=== PATIENT | male | born 1995 | race Caucasian/White ===

== ENCOUNTER 2016-12-10 22:03 | Emergency (ER) | payer BC, OTHER ==
--- NOTE | 2016-12-10 22:30 | EDM.PDOC ---
ED HPI GENERAL MEDICAL PROBLEM - General Chief Complaint: Abdominal Pain Stated Complaint: STOMACH PAIN Time Seen by Provider: 12/10/16 22:29 Source of Information: Reports: Patient - History of Present Illness INITIAL COMMENTS - FREE TEXT/NARRATIVE: HISTORY AND PHYSICAL: History of present illness: Patient has right upper quadrant pain for one month with clear fluid association he avoids greasy meals as it increases pain and upsets his stomach, he awoke with 10 out of 10 pain last night at 2 AM pain improved throughout the day has been eating with worsening of symptoms with food some mild nausea no vomiting fever no chills sweats Review of systems: As per history of present illness and below otherwise all systems reviewed and negative. Past medical history: As per history of present illness and as reviewed below otherwise noncontributory. Surgical history: As per history of present illness and as reviewed below otherwise noncontributory. Social history: No reported history of drug or alcohol abuse. Family history: As per history of present illness and as reviewed below otherwise noncontributory. Physical exam: HEENT: Atraumatic, normocephalic, pupils reactive, negative for conjunctival pallor or scleral icterus, mucous membranes moist, throat clear, neck supple, nontender, trachea midline. Lungs: Clear to auscultation, breath sounds equal bilaterally, chest nontender. Heart: S1S2, regular, negative for clicks, rubs, or JVD. Abdomen: Soft, nondistended, nontender on left side there is some mild tenderness with guarding in the right lower quadrant but more focused tenderness in the right upper quadrant. Negative for masses or hepatosplenomegaly. Negative for costovertebral tenderness. Pelvis: Stable nontender. Genitourinary: Deferred. Rectal: Deferred. Extremities: Atraumatic, negative for cords or calf pain. Neurovascular unremarkable. Neuro: Awake, alert, oriented. Cranial nerves II through XII unremarkable. Cerebellum unremarkable. Motor and sensory unremarkable throughout. Exam nonfocal. Diagnostics: []lab as below CT abdomen pelvis with contrast Therapeutics: []Normal saline 1 L bolus Toradol 30 mg IV Zofran 8 mg IV Toradol 10 mg by mouth 3 times a day #15 no refill Zofran 8 mg ODT every 8 when necessary #30 no refill [place] diet Establish primary care for consideration of HIDA scan and further evaluation Return if symptoms persist or worsen in the interim Impression: []Abdominal pain Likely biliary colic Definitive disposition and diagnosis as appropriate pending reevaluation and review of above. 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 - Past Surgical History HEENT Surgical History: Reports: Tonsillectomy Social & Family History - Family History Hematologic: Reports: Anesthesia Reaction, Other (See Below) Other Hematologic Family History: malignant hyperthermia - Caffeine Use Caffeine Use: Reports: Coffee Caffeine Use Comment: 1-2 daily - Recreational Drug Use Recreational Drug Use: No ED ROS GENERAL - Review of Systems Review Of Systems: See Below ED EXAM, GENERAL - Physical Exam Exam: See Below Course - Vital Signs Last Recorded V/S: Last Vital Signs Temp 36.2 C 12/10/16 22:05 Pulse 104 H 12/10/16 22:05 Resp 20 12/10/16 22:05 BP 148/97 H 12/10/16 22:05 Pulse Ox 20 L 12/10/16 22:05 - Orders/Labs/Meds Orders: Active Orders 24 hr Category Date Time Status Abdomen Pelvis w Cont [CT] Stat Exams 12/10/16 22:30 Taken Labs: Laboratory Tests 12/10/16 12/10/16 12/10/16 Range/Units 22:15 22:15 22:15 WBC 9.23 (4.0-11.0) K/uL RBC 5.04 (4.50-5.90) M/uL Hgb 15.9 (13.0-17.0) g/dL Hct 44.7 (38.0-50.0) % MCV 88.7 (80.0-98.0) fL MCH 31.5 (27.0-32.0) pg MCHC 35.6 (31.0-37.0) g/dL RDW Std Deviation 39.8 (28.0-62.0) fl RDW Coeff of Izaiah 13 (11.0-15.0) % Plt Count 297 (150-400) K/uL MPV 9.80 (7.40-12.00) fL Neut % (Auto) 56.6 (48.0-80.0) % Lymph % (Auto) 33.7 (16.0-40.0) % Wetzel % (Auto) 8.0 (0.0-15.0) % Eos % (Auto) 1.5 (0.0-7.0) % Baso % (Auto) 0.2 (0.0-1.5) % Neut # (Auto) 5.2 (1.4-5.7) K/uL Lymph # (Auto) 3.1 H (0.6-2.4) K/uL Wetzel # (Auto) 0.7 (0.0-0.8) K/uL Eos # (Auto) 0.1 (0.0-0.7) K/uL Baso # (Auto) 0.0 (0.0-0.1) K/uL Nucleated RBC % 0.0 /100WBC Nucleated RBCs # 0 K/uL Sodium 140 (136-146) mmol/L Potassium 4.0 (3.5-5.1) mmol/L Chloride 107 (98-110) mmol/L Carbon Dioxide 22 (21-31) mmol/L BUN 12 (6.0-23.0) mg/dL Creatinine 1.3 (0.6-1.5) mg/dL Est Cr Clr Drug Dosing 92.81 mL/min Estimated GFR (MDRD) > 60.0 ml/min Glucose 102 (60-110) mg/dL Calcium 9.9 (8.8-10.8) mg/dL Total Bilirubin 0.4 (0.1-1.5) mg/dL AST 73 H (5-40) IU/L ALT 31 (8-54) IU/L Alkaline Phosphatase 65 (40-150) Troponin I < 0.10 (0.0-0.29) NG/ML Total Protein 7.8 (6.0-8.0) g/dL Albumin 4.6 (3.5-5.0) g/dL Globulin 3.2 (2.0-3.5) g/dL Albumin/Globulin Ratio 1.4 (1.3-2.8) Amylase 81 (10-90) U/L Lipase 30 (7-80) U/L Urine Color Urine Appearance Urine pH (5.0-8.0) Ur Specific Powell (1.001-1.035) Urine Protein (NEGATIVE) mg/dL Urine Glucose (UA) (NEGATIVE) mg/dL Urine Ketones (NEGATIVE) mg/dL Urine Occult Blood (NEGATIVE) Urine Nitrite (NEGATIVE) Urine Bilirubin (NEGATIVE) Urine Urobilinogen (<2.0) EU/dL Ur Leukocyte Esterase (NEGATIVE) Urine RBC (0-2/HPF) Urine WBC (0-5/HPF) Ur Epithelial Cells (NONE-FEW) Urine Bacteria (NEGATIVE) 12/10/16 Range/Units 22:25 WBC (4.0-11.0) K/uL RBC (4.50-5.90) M/uL Hgb (13.0-17.0) g/dL Hct (38.0-50.0) % MCV (80.0-98.0) fL MCH (27.0-32.0) pg MCHC (31.0-37.0) g/dL RDW Std Deviation (28.0-62.0) fl RDW Coeff of Izaiah (11.0-15.0) % Plt Count (150-400) K/uL MPV (7.40-12.00) fL Neut % (Auto) (48.0-80.0) % Lymph % (Auto) (16.0-40.0) % Wetzel % (Auto) (0.0-15.0) % Eos % (Auto) (0.0-7.0) % Baso % (Auto) (0.0-1.5) % Neut # (Auto) (1.4-5.7) K/uL Lymph # (Auto) (0.6-2.4) K/uL Wetzel # (Auto) (0.0-0.8) K/uL Eos # (Auto) (0.0-0.7) K/uL Baso # (Auto) (0.0-0.1) K/uL Nucleated RBC % /100WBC Nucleated RBCs # K/uL Sodium (136-146) mmol/L Potassium (3.5-5.1) mmol/L Chloride (98-110) mmol/L Carbon Dioxide (21-31) mmol/L BUN (6.0-23.0) mg/dL Creatinine (0.6-1.5) mg/dL Est Cr Clr Drug Dosing mL/min Estimated GFR (MDRD) ml/min Glucose (60-110) mg/dL Calcium (8.8-10.8) mg/dL Total Bilirubin (0.1-1.5) mg/dL AST (5-40) IU/L ALT (8-54) IU/L Alkaline Phosphatase (40-150) Troponin I (0.0-0.29) NG/ML Total Protein (6.0-8.0) g/dL Albumin (3.5-5.0) g/dL Globulin (2.0-3.5) g/dL Albumin/Globulin Ratio (1.3-2.8) Amylase (10-90) U/L Lipase (7-80) U/L Urine Color YELLOW Urine Appearance CLEAR Urine pH 6.5 (5.0-8.0) Ur Specific Powell 1.015 (1.001-1.035) Urine Protein NEGATIVE (NEGATIVE) mg/dL Urine Glucose (UA) NEGATIVE (NEGATIVE) mg/dL Urine Ketones NEGATIVE (NEGATIVE) mg/dL Urine Occult Blood NEGATIVE (NEGATIVE) Urine Nitrite NEGATIVE (NEGATIVE) Urine Bilirubin NEGATIVE (NEGATIVE) Urine Urobilinogen 0.2 (<2.0) EU/dL Ur Leukocyte Esterase NEGATIVE (NEGATIVE) Urine RBC NONE SEEN (0-2/HPF) Urine WBC 0-1 (0-5/HPF) Ur Epithelial Cells NOT SEEN (NONE-FEW) Urine Bacteria RARE (NEGATIVE) Meds: Medications Discontinued Medications Generic Name Dose Route Start Last Admin Trade Name Juniorq PRN Reason Stop Dose Admin Iopamidol 100 ml 12/10/16 23:50 12/10/16 23:51 Isovue Multipack-370 (76%) IVPUSH 12/10/16 23:51 100 ml ONETIME STA Administration Departure - Departure Time of Disposition: 00:27 Disposition: Home, Self-Care 01 Condition: Good Clinical Impression: Abdominal pain - Discharge Information Referrals: Jhonatan Winchester MD [Primary Care Provider] - Forms: ED Department Discharge Additional Instructions: [place] diet as discussed Medication as prescribed Return if symptoms persist worsen or new concerning symptoms develop Establish primary care for further evaluation and consider addition of HIDA scan testing [facility] [address] [place], [place] [id number] The following information is given to patients seen in the emergency department who are being discharged to home. This information is to outline your options for follow-up care. We provide all patients seen in our emergency department with a follow-up referral. The need for follow-up, as well as the timing and circumstances, are variable depending upon the specifics of your emergency department visit. If you don't have a primary care physician on staff, we will provide you with a referral. We always advise you to contact your personal physician following an emergency department visit to inform them of the circumstance of the visit and for follow-up with them and/or the need for any referrals to a consulting specialist. The emergency department will also refer you to a specialist when appropriate. This referral assures that you have the opportunity for follow-up care with a specialist. All of these measure are taken in an effort to provide you with optimal care, which includes your follow-up. Under all circumstances we always encourage you to contact your private physician who remains a resource for coordinating your care. When calling for follow-up care, please make the office aware that this follow-up is from your recent emergency room visit. If for any reason you are refused follow-up, please contact the [facility] emergency department at and asked to speak to the emergency department charge nurse. - My Orders Last 24 Hours: My Active Orders 12/10/16 22:30 Abdomen Pelvis w Cont [CT] Stat - Assessment/Plan Last 24 Hours: My Active Orders 12/10/16 22:30 Abdomen Pelvis w Cont [CT] Stat
[2016-12-10 22:47] LABS: CHLORIDE,CL 107 mmol/L (98-110); SODIUM,NA 140 mmol/L (136-146)
[2016-12-10] MEDS ORDERED: Iopamidol 755 MG/ML 500 ML Multipack Bottle IVPUSH STA (23:50)
[2016-12-11 00:48] VITALS: BP 139/84
--- NOTE | 2016-12-13 10:05 | CT ---
EXAM DATE: 12/10/16 PATIENT'S AGE: 21 Patient: BALWINDER NAZARIO Facility: [place], [place] Site . Site : 1995 Study: CT Abdomen/Pelvis [id number] 11:50:09 PM Ordering Physician: Clayton Rushing Final Report: INDICATION: Right lower quadrant abdominal pain and nausea for 1 month TECHNIQUE: CT abdomen and pelvis acquired with 100 cc Isovue 370 IV contrast. COMPARISON: October 04, 2014 FINDINGS: Lower chest: Unremarkable. Liver: Unremarkable. Spleen: Unremarkable. Pancreas: Unremarkable. Gallbladder and bile ducts: Unremarkable. Adrenal glands: Unremarkable. Kidneys: Unremarkable. GI tract: Unremarkable. Appendix and terminal ileum are normal. Vascular structures: Unremarkable. Lymph nodes: Unremarkable. Miscellaneous: Unremarkable. No free air or significant free fluid. Pelvic Organs: Unremarkable. Bones: Unremarkable for age. IMPRESSION: Unremarkable CT of the abdomen and pelvis. Specifically, the appendix and terminal ileum are normal in appearance. Please note that all CT scans at this facility use dose modulation, iterative reconstruction, and/or weight-based dosing when appropriate to reduce radiation dose to as low as reasonably achievable. Dictated by Darcie Baez MD @ Dec 11 2016 12:00AM (Electronic Signature) Report Signed by Proxy. [facility] CENTER[facility]arek
== END 2016-12-11 00:43 | disposition home or self-care (01) ==
LOC: MW.ED 22:03
DX: R10.11 Right upper quadrant pain (principal)
CPT/HCPCS: 74177; 80053; 81001; 82150; 83690; 84484; 85025; 99284; Q9967; 99282

== ENCOUNTER 2017-03-08 19:19 | Emergency (ER) | payer OTHER ==
[2017-03-08 19:30] VITALS: BP 132/91
--- NOTE | 2017-03-08 19:32 | EDM.PDOC ---
ED HPI GENERAL MEDICAL PROBLEM - General Chief Complaint: ENT Problem Stated Complaint: TOOTH PAIN Time Seen by Provider: 03/08/17 19:32 Source of Information: Reports: Patient - History of Present Illness INITIAL COMMENTS - FREE TEXT/NARRATIVE: HISTORY AND PHYSICAL: History of present illness: [Patient with a history of dental pain secondary to his wisdom teeth currently complains of 5 out of 10 pain and headaches secondary to wisdom teeth, he has seen Dr. Zee was referred him to an resident athletic trainer as he has a history of malignant hyperthermia during procedures. The local resident athletic trainer had declined taking care of him and is referring him on at current he complains of headache and dental pain no fever nausea vomiting chills sweats no chest pain shortness breath dizziness palpitation about a urine symptoms Patient has failed [id number] symptomatic therapies ] Patient works in dispatch in the [employer] Review of systems: As per history of present illness and below otherwise all systems reviewed and negative. Past medical history: As per history of present illness and as reviewed below otherwise noncontributory. Surgical history: As per history of present illness and as reviewed below otherwise noncontributory. Social history: No reported history of drug or alcohol abuse. Family history: As per history of present illness and as reviewed below otherwise noncontributory. Physical exam: HEENT: Atraumatic, normocephalic, pupils reactive, negative for conjunctival pallor or scleral icterus, mucous membranes moist, throat clear, neck supple, nontender, trachea midline. Dentition appears healthy no swelling or abscess formation he does have a wisdom tooth trying to cut down the left rear lower jaw Lungs: Clear to auscultation, breath sounds equal bilaterally, chest nontender. Heart: S1S2, regular, negative for clicks, rubs, or JVD. Abdomen: Soft, nondistended, nontender. Negative for masses or hepatosplenomegaly. Negative for costovertebral tenderness. Pelvis: Stable nontender. Genitourinary: Deferred. Rectal: Deferred. Extremities: Atraumatic, negative for cords or calf pain. Neurovascular unremarkable. Neuro: Awake, alert, oriented. Cranial nerves II through XII unremarkable. Cerebellum unremarkable. Motor and sensory unremarkable throughout. Exam nonfocal. Diagnostics: [Clinical] Therapeutics: []Tramadol Follow-up with Dr. BAKER at [facility] consider referral to [facility] to if necessary Impression: [Dental pain] Definitive disposition and diagnosis as appropriate pending reevaluation and review of above. 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 ED EXAM, GENERAL - Physical Exam Exam: See Below Course - Vital Signs Last Recorded V/S: Last Vital Signs Temp 98.2 F 03/08/17 19:27 Pulse 90 03/08/17 19:27 Resp 18 03/08/17 19:27 BP 132/91 H 03/08/17 19:27 Pulse Ox 98 03/08/17 19:27 Departure - Departure Time of Disposition: 19:39 Disposition: Home, Self-Care 01 Condition: Good Clinical Impression: Pain, dental - Discharge Information Referrals: Jhonatan Winchester MD [Primary Care Provider] - Forms: ED Department Discharge Additional Instructions: Medication as prescribed Return if symptoms persist or worsen Follow-up with dentist as soon as possible Recommend [facility] is the [facility] provider available at [facility] may consider referral onto [facility] for treatment The following information is given to patients seen in the emergency department who are being discharged to home. This information is to outline your options for follow-up care. We provide all patients seen in our emergency department with a follow-up referral. The need for follow-up, as well as the timing and circumstances, are variable depending upon the specifics of your emergency department visit. If you don't have a primary care physician on staff, we will provide you with a referral. We always advise you to contact your personal physician following an emergency department visit to inform them of the circumstance of the visit and for follow-up with them and/or the need for any referrals to a consulting specialist. The emergency department will also refer you to a specialist when appropriate. This referral assures that you have the opportunity for follow-up care with a specialist. All of these measure are taken in an effort to provide you with optimal care, which includes your follow-up. Under all circumstances we always encourage you to contact your private physician who remains a resource for coordinating your care. When calling for follow-up care, please make the office aware that this follow-up is from your recent emergency room visit. If for any reason you are refused follow-up, please contact the [facility] emergency department at and asked to speak to the emergency department charge nurse.
== END 2017-03-08 19:55 | disposition home or self-care (01) ==
LOC: MW.ED 19:19
DX: K08.89 Other specified disorders of teeth and supporting structures (principal); Z79.899 Other long term (current) drug therapy
CPT/HCPCS: 99282

== ENCOUNTER 2019-01-31 11:27 | Emergency (ER) | payer OTHER ==
--- NOTE | 2019-01-31 11:38 | EDM.PDOC ---
ED HPI GENERAL MEDICAL PROBLEM - General Stated Complaint: SORE THROAT Time Seen by Provider: 01/31/19 11:32 - History of Present Illness INITIAL COMMENTS - FREE TEXT/NARRATIVE: HISTORY AND PHYSICAL: History of present illness: Patient's 23-year-old white male presents concern of sore throat worse over last 48 hours he's had tactile fever denies chills denies nausea vomiting shortness breath or other concern Review of systems: As per history of present illness and below otherwise all systems reviewed and negative. Past medical history: As per history of present illness and as reviewed below otherwise noncontributory. Surgical history: As per history of present illness and as reviewed below otherwise noncontributory. Social history: No reported history of drug or alcohol abuse. Family history: As per history of present illness and as reviewed below otherwise noncontributory. Physical exam: HEENT: Atraumatic, normocephalic, pupils reactive, negative for conjunctival pallor or scleral icterus, mucous membranes moist, throat injected, neck supple , nontender, trachea midline. Lungs: Clear to auscultation, breath sounds equal bilaterally, chest nontender. Heart: S1S2, regular, negative for clicks, rubs, or JVD. Abdomen: Soft, nondistended, nontender. Negative for masses or hepatosplenomegaly. Negative for costovertebral tenderness. Pelvis: Stable nontender. Genitourinary: Deferred. Rectal: Deferred. Extremities: Atraumatic, negative for cords or calf pain. Neurovascular unremarkable. Neuro: Awake, alert, oriented. Cranial nerves II through XII unremarkable. Cerebellum unremarkable. Motor and sensory unremarkable throughout. Exam nonfocal. Diagnostics: Deferred Therapeutics: None Impression: 1 pharyngitis Definitive disposition and diagnosis as appropriate pending reevaluation and review of above. - Related Data Allergies Allergy/AdvReac Type Severity Reaction Status Date / Time No Known Allergies Allergy Verified 03/08/17 19:27 Home Meds: Home Meds Amphetamine/Dextroamphetamine [Adderall XR] 30 mg PO DAILY 12/10/16 [History] Past Medical History HEENT History: Reports: None Cardiovascular History: Reports: None Respiratory History: Reports: None Gastrointestinal History: Reports: None Genitourinary History: Reports: None Musculoskeletal History: Reports: None Neurological History: Reports: None Psychiatric History: Reports: ADHD Endocrine/Metabolic History: Reports: None Hematologic History: Reports: Anesthesia Reaction, Other (See Below) 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 Immunologic History: Reports: None Oncologic (Cancer) History: Reports: None Dermatologic History: Reports: None - Infectious Disease History Infectious Disease History: Reports: None - Past Surgical History HEENT Surgical History: Reports: Tonsillectomy Social & Family History - Family History Family Medical History: Noncontributory Hematologic: Reports: Anesthesia Reaction, Other (See Below) Other Hematologic Family History: malignant hyperthermia - Caffeine Use Caffeine Use: Reports: Coffee Caffeine Use Comment: 1-2 daily ED ROS GENERAL - Review of Systems Review Of Systems: Comprehensive ROS is negative, except as noted in HPI. ED EXAM, GENERAL - Physical Exam Exam: See Below (dictation) Departure - Departure Time of Disposition: 11:37 Disposition: Home, Self-Care 01 Condition: Good Clinical Impression: Pharyngitis - Discharge Information Referrals: PCP,Unknown [Primary Care Provider] - Additional Instructions: The following information is given to patients seen in the emergency department who are being discharged to home. This information is to outline your options for follow-up care. We provide all patients seen in our emergency department with a follow-up referral. The need for follow-up, as well as the timing and circumstances, are variable depending upon the specifics of your emergency department visit. If you don't have a primary care physician on staff, we will provide you with a referral. We always advise you to contact your personal physician following an emergency department visit to inform them of the circumstance of the visit and for follow-up with them and/or the need for any referrals to a consulting specialist. The emergency department will also refer you to a specialist when appropriate. This referral assures that you have the opportunity for followup care with a specialist. All of these measure are taken in an effort to provide you with optimal care, which includes your followup. Under all circumstances we always encourage you to contact your private physician who remains a resource for coordinating your care. When calling for followup care, please make the office aware that this follow-up is from your recent emergency room visit. If for any reason you are refused follow-up, please contact the [facility] emergency department at and asked to speak to the emergency department charge nurse. Augmentin is prescribed Motrin/Tylenol as directed push fluids follow primary medical doctor 1 today's return as needed as discussed
[2019-01-31 12:04] VITALS: BP 136/76; PULSE 103
== END 2019-01-31 12:04 | disposition home or self-care (01) ==
LOC: MW.ED 11:27
DX: J02.9 Acute pharyngitis, unspecified (principal); F90.9 Attention-deficit hyperactivity disorder, unspecified type; Z79.899 Other long term (current) drug therapy
CPT/HCPCS: 99283

== ENCOUNTER 2019-04-27 23:05 | Emergency (ER) | payer OTHER ==
[2019-04-27] MEDS ORDERED: Albuterol/Ipratropium 3.0-0.5 MG/3 ML Neb Soln NEB ONE (23:20)
[2019-04-27] MEDS ORDERED: Dexamethasone 10 MG/ML SDV IM ONE (23:25)
[2019-04-27 23:31] VITALS: BP 134/83; PULSE 109
--- NOTE | 2019-04-27 23:53 | EDM.PDOC ---
ED HPI GENERAL MEDICAL PROBLEM - General Chief Complaint: Respiratory Problem Stated Complaint: TROUBLE BREATHING Time Seen by Provider: 04/27/19 23:40 Source of Information: Reports: Patient - History of Present Illness INITIAL COMMENTS - FREE TEXT/NARRATIVE: The patient is a 23-year-old male with no reported medical problems who presents to the ER for coughing and shortness of breath. He states that he was having some trouble breathing and has been coughing for the last few days. No fevers but he generally does not feel well. No hemoptysis, no syncope or near syncope. Patient overall is a rather poor historian. 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 Treatments Lower Chest Pain Score (Numeric/FACES): 10 - Related Data Allergies Allergy/AdvReac Type Severity Reaction Status Date / Time No Known Allergies Allergy Verified 04/27/19 23:10 Home Meds: Home Meds Amphetamine/Dextroamphetamine [Adderall XR] 20 mg PO DAILY 12/10/16 [History] Past Medical History HEENT History: Reports: None Cardiovascular History: Reports: None Respiratory History: Reports: None Gastrointestinal History: Reports: None Genitourinary History: Reports: None Musculoskeletal History: Reports: None Neurological History: Reports: None Psychiatric History: Reports: ADHD Endocrine/Metabolic History: Reports: None Hematologic History: Reports: Anesthesia Reaction, Other (See Below) 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 Immunologic History: Reports: None Oncologic (Cancer) History: Reports: None Dermatologic History: Reports: None - Infectious Disease History Infectious Disease History: Reports: None - Past Surgical History HEENT Surgical History: Reports: Tonsillectomy Social & Family History - Family History Family Medical History: Noncontributory Hematologic: Reports: Anesthesia Reaction, Other (See Below) Other Hematologic Family History: malignant hyperthermia - Tobacco Use Smoking Status *Q: Current Every Day Smoker Years of Tobacco use: 8 Packs/Tins Daily: 0.5 - Caffeine Use Caffeine Use: Reports: None Caffeine Use Comment: 1-2 daily - Recreational Drug Use Recreational Drug Use: No ED ROS GENERAL - Review of Systems Review Of Systems: See Below (For cough, positive for nasal congestion, positive for shortness of breath, positive for malaise, all other Positives and pertinent negatives as per HPI. All other pertinent systems were reviewed and are negative) ED EXAM, GENERAL - Physical Exam Exam: See Below Free Text/Narrative:: Constitutional: Nontoxic, harsh bronchial cough and mild shortness of breath, mild laryngitis present HEENT.: Normocephalic, Atraumatic, PERRL, EOMI, External ears are atraumatic, nares are patent without epistaxis Neck: Normal range of motion, Trachea Midline, No stridor Respiratory.: Mild respiratory distress, Mild tachypnea, mild wheezing throughout with a harsh bronchial cough Cardiovascular.: Regular rate and Rhythm without murmurs, rubs, or gallops, good peripheral perfusion GI: Deferred Genital Urinary: Deferred Musculoskeletal: Good range of motion. All 4 extremities present and atraumatic , no edema Back: Full Range of Motion Skin: Warm, Dry, Color is ethnicity appropriate, No acute rash. Lymphatic: No lymphadenopathy noted Neurological: Alert, Awake and oriented x 3, No focal deficits noted appreciate , GCS 15 Psych: Affect, Judgement, mood normal Course - Vital Signs Text/Narrative:: The patient was given 1 nebulizer breathing treatment and his symptoms have improved significantly. He was given a dose of Decadron 20 mg IM. Symptomology consistent with a viral syndrome. The patient has work off tomorrow. Stable for discharge. Last Recorded V/S: Last Vital Signs Temp 36.6 C 04/27/19 23:07 Pulse 109 H 04/27/19 23:07 Resp 28 H 04/27/19 23:07 BP 134/83 04/27/19 23:07 Pulse Ox 95 04/27/19 23:07 - Orders/Labs/Meds Orders: Active Orders 24 hr Category Date Time Status CXR [Chest 2V] [CR] Stat Exams 04/27/19 23:24 Ordered Meds: Medications Discontinued Medications Generic Name Dose Route Start Last Admin Trade Name Freq PRN Reason Stop Dose Admin Dexamethasone 20 mg 04/27/19 23:25 Dexamethasone IM 04/27/19 23:26 ONETIME ONE Departure - Departure Time of Disposition: 00:03 Disposition: Home, Self-Care 01 Condition: Good Clinical Impression: Viral syndrome, Bronchospasm - Discharge Information Instructions: Viral Respiratory Infection Referrals: PCP,None [Primary Care Provider] - Sepsis Event Note - Evaluation Sepsis Screening Result: No Definite Risk - Focused Exam Vital Signs: Vital Signs Temp Pulse Resp BP Pulse Ox 04/27/19 23:07 36.6 C 109 H 28 H 134/83 95 Date Exam was Performed: 04/27/19 Time Exam was Performed: 23:40 - My Orders Last 24 Hours: My Active Orders 04/27/19 23:24 CXR [Chest 2V] [CR] Stat - Assessment/Plan Last 24 Hours: My Active Orders 04/27/19 23:24 CXR [Chest 2V] [CR] Stat
--- NOTE | 2019-04-28 00:05 | CR ---
INDICATION: Cough and shortness of breath TECHNIQUE: Chest 2 views COMPARISON: Chest x-ray 06/30/2017 FINDINGS: Cardiovascular and mediastinum: Heart size and vasculature are normal in caliber and appearance. Lungs and pleural spaces: No pleural effusion or pneumothorax. Mild bilateral bronchial wall thickening. Bones and soft tissues: No significant findings. IMPRESSION: Mild bilateral bronchial wall thickening which can be seen in bronchitis or reactive airways disease. Dictated by Moose Malin MD @ Apr 28 2019 12:02AM Signed by Dr. Moose Malin @ Apr 28 2019 12:03AM
== END 2019-04-28 00:21 | disposition home or self-care (01) ==
LOC: MW.ED 23:05
DX: J98.01 Acute bronchospasm (principal); B34.9 Viral infection, unspecified; F17.210 Nicotine dependence, cigarettes, uncomplicated; Z79.899 Other long term (current) drug therapy
CPT/HCPCS: 71046; 94640; 96372; 99285; J1100; J7620-GY

== ENCOUNTER 2020-04-09 21:47 | Emergency (ER) | payer OTHER ==
[2020-04-09] MEDS ORDERED: Cyclobenzaprine 10 MG Tab PO ONE (22:19)
[2020-04-09] MEDS ORDERED: Ketorolac 30 MG/ML SDV IM ONE (22:19)
--- NOTE | 2020-04-09 22:23 | EDM.PDOC ---
ED HPI GENERAL MEDICAL PROBLEM - General Chief Complaint: Genitourinary Problem Stated Complaint: BACK PAIN Time Seen by Provider: 04/09/20 22:20 Source of Information: Reports: Patient History Limitations: Reports: No Limitations - History of Present Illness INITIAL COMMENTS - FREE TEXT/NARRATIVE: Patient is a 24-year-old male who presents today for lower back pain on the righ t side for the past 2 days. Patient states that he contracted Tylenol Motrin at home without relief. Patient denies any injuries or direct trauma to the back. Patient dates the pain does wrap around to his right lower groin. Patient also reports been urinating more frequently than normal. Patient denies any blood in his urine discharge or pain with urination. Patient denies any fever chills. R flank Pain Score (Numeric/FACES): 10 - Related Data Allergies Allergy/AdvReac Type Severity Reaction Status Date / Time No Known Allergies Allergy Verified 04/27/19 23:10 Home Meds: Home Meds Amphetamine/Dextroamphetamine [Adderall XR] 25 mg PO DAILY 12/10/16 [History] Naproxen Sodium [Naproxen Sodium ER] 500 mg PO BID PRN 10 Days #20 tablet.er 04/10/20 [Rx] Past Medical History HEENT History: Reports: None Cardiovascular History: Reports: None Respiratory History: Reports: None Gastrointestinal History: Reports: None Genitourinary History: Reports: None Musculoskeletal History: Reports: None Neurological History: Reports: None Psychiatric History: Reports: ADHD Endocrine/Metabolic History: Reports: None Hematologic History: Reports: Anesthesia Reaction, Other (See Below) 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 Immunologic History: Reports: None Oncologic (Cancer) History: Reports: None Dermatologic History: Reports: None - Infectious Disease History Infectious Disease History: Reports: None - Past Surgical History HEENT Surgical History: Reports: Tonsillectomy Social & Family History - Family History Family Medical History: No Pertinent Family History Hematologic: Reports: Anesthesia Reaction, Other (See Below) Other Hematologic Family History: malignant hyperthermia - Caffeine Use Caffeine Use: Reports: None Caffeine Use Comment: 1-2 daily ED ROS GENERAL - Review of Systems Review Of Systems: Comprehensive ROS is negative, except as noted in HPI. ED EXAM, GENERAL - Physical Exam Exam: See Below General Appearance: Alert, WD/WN Respiratory/Chest: No Respiratory Distress, Lungs Clear Cardiovascular: Normal Peripheral Pulses, Regular Rate, Rhythm GI/Abdominal: Normal Bowel Sounds, Soft, Non-Tender Back Exam: Normal Inspection, Full Range of Motion, Paraspinal Tenderness. No: Muscle Spasm, Vertebral Tenderness Neurological: Alert, Oriented, Normal Gait Course - Vital Signs Last Recorded V/S: Last Vital Signs Temp 97.0 F 04/09/20 22:05 Pulse 84 04/09/20 22:05 Resp 18 04/09/20 22:05 BP 119/74 04/09/20 22:05 Pulse Ox 95 04/09/20 22:05 - Orders/Labs/Meds Labs: Laboratory Tests 04/09/20 Range/Units 21:56 Urine Color YELLOW Urine Appearance CLEAR Urine pH 6.0 (5.0-8.0) Ur Specific Cook >= 1.030 (1.001-1.035) Urine Protein NEGATIVE (NEGATIVE) mg/dL Urine Glucose (UA) NEGATIVE (NEGATIVE) mg/dL Urine Ketones TRACE H (NEGATIVE) mg/dL Urine Occult Blood NEGATIVE (NEGATIVE) Urine Nitrite NEGATIVE (NEGATIVE) Urine Bilirubin NEGATIVE (NEGATIVE) Urine Urobilinogen 0.2 (<2.0) EU/dL Ur Leukocyte Esterase NEGATIVE (NEGATIVE) Meds: Medications Discontinued Medications Generic Name Dose Route Start Last Admin Trade Name Freq PRN Reason Stop Dose Admin Cyclobenzaprine HCl 10 mg 04/09/20 22:19 04/09/20 22:36 Flexeril PO 04/09/20 22:20 10 mg ONETIME ONE Administration Ketorolac Tromethamine 30 mg 04/09/20 22:19 04/09/20 22:37 Toradol IM 04/09/20 22:20 30 mg ONETIME ONE Administration - Re-Assessments/Exams Free Text/Narrative Re-Assessment/Exam: 04/10/20 00:33 Patient x-ray reviewed patient was given Toradol and Flexeril for pain. Patient will be discharged home to follow-up with primary care physician. Departure - Departure Time of Disposition: 00:33 Disposition: Home, Self-Care 01 Condition: Good Clinical Impression: Back pain - Discharge Information *PRESCRIPTION DRUG MONITORING PROGRAM REVIEWED*: Not Applicable *COPY OF PRESCRIPTION DRUG MONITORING REPORT IN PATIENT SAMAN: Not Applicable Instructions: Acute Back Pain, Adult Referrals: Jhonatan Winchester MD [Primary Care Provider] - Forms: ED Department Discharge Additional Instructions: The following information is given to patients seen in the emergency department who are being discharged to home. This information is to outline your options for follow-up care. We provide all patients seen in our emergency department with a follow-up referral. The need for follow-up, as well as the timing and circumstances, are variable depending upon the specifics of your emergency department visit. If you don't have a primary care physician on staff, we will provide you with a referral. We always advise you to contact your personal physician following an emergency department visit to inform them of the circumstance of the visit and for follow-up with them and/or the need for any referrals to a consulting specialist. The emergency department will also refer you to a specialist when appropriate. This referral assures that you have the opportunity for follow-up care with a specialist. All of these measure are taken in an effort to provide you with optimal care, which includes your follow-up. Under all circumstances we always encourage you to contact your private physician who remains a resource for coordinating your care. When calling for follow-up care, please make the office aware that this follow-up is from your recent emergency room visit. If for any reason you are refused follow-up, please contact the [facility] Emergency Department at and asked to speak to the emergency department charge nurse. Please follow up with your primary care physician. If you do not have a primary care physician, see below: [facility] [address] [place] [id number] [facility] [address] [place] [id number] [facility] Services at [facility] (Physical Therapy, Occupational Therapy, Speech Therapy) Professional Building [address] [place] [address], [address] [place] [address] . Please follow-up to primary care physician. Above we also placed for physical therapy that you can follow-up with if you turn having pain. Of any leg weakness numbness your tailbone lose control your bladder please return to the ED. Sepsis Event Note (ED) - Focused Exam Vital Signs: Vital Signs Temp Pulse Resp BP Pulse Ox 04/09/20 22:05 97.0 F 84 18 119/74 95 - Assessment/Plan Assessment:: Patient is a 24-year-old male presents today for right lower back pain started 2 days ago. Patient has some paraspinal muscle tenderness on examination. Patient also reported increased urination will send UA and provide pain control and reassess.
--- NOTE | 2020-04-10 00:23 | CR ---
INDICATION: Low back pain TECHNIQUE: Lumbar spine 3 view. COMPARISON: None available FINDINGS/IMPRESSION: Unremarkable lumbar spine alignment. Anatomically aligned facets. Preserved vertebral body heights and disc spaces. No gross acute osseous abnormality seen. The superior aspect of the left sacroiliac joint is not well seen, possibly projectional. Dictated by Rosalio Walls MD @ Apr 10 2020 12:17AM Signed by Dr. Rosalio Walls @ Apr 10 2020 12:21AM
[2020-04-10 00:49] VITALS: BP 145/86; PULSE 80
== END 2020-04-10 00:48 | disposition home or self-care (01) ==
LOC: MW.ED 21:47
DX: M54.5 Low back pain (principal); Z79.899 Other long term (current) drug therapy
CPT/HCPCS: 72100; 81003; 96372; 99283; A9270; J1885

== ENCOUNTER 2020-04-19 00:09 | Emergency (ER) | payer OTHER ==
[2020-04-19] MEDS ORDERED: Amoxicillin/Clavulanate K 875-125 MG Tab PO ONE (00:19)
--- NOTE | 2020-04-19 00:31 | EDM.PDOC ---
ED HPI GENERAL MEDICAL PROBLEM - General Chief Complaint: Skin Complaint Stated Complaint: RT HAND INJURY Time Seen by Provider: 04/19/20 00:12 - History of Present Illness INITIAL COMMENTS - FREE TEXT/NARRATIVE: 24-year-old male otherwise well bitten by his cat while giving a bath yesterday and 6-month-old kitten. Work-up this morning with right dorsal hand redness the patient is right-hand dominant he is not of diabetes or any other medical problems gradually worsening redness and right hand swelling and discomfort. No fevers no pain in the forearm right hand Pain Score (Numeric/FACES): 8 - Related Data Allergies Allergy/AdvReac Type Severity Reaction Status Date / Time No Known Allergies Allergy Verified 04/19/20 00:18 Home Meds: Home Meds Amoxicillin/Potassium Clav [Augmentin 875-125 Tablet] 1 each PO BID 7 Days #14 tablet 04/19/20 [Rx] Past Medical History HEENT History: Reports: None Cardiovascular History: Reports: None Respiratory History: Reports: None Gastrointestinal History: Reports: None Genitourinary History: Reports: None Musculoskeletal History: Reports: None Neurological History: Reports: None Psychiatric History: Reports: ADHD Endocrine/Metabolic History: Reports: None Insulin Pump Model and Glove Cutter: None Hematologic History: Reports: Anesthesia Reaction, Other (See Below) 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 Immunologic History: Reports: None Oncologic (Cancer) History: Reports: None Dermatologic History: Reports: None - Infectious Disease History Infectious Disease History: Reports: None - Past Surgical History Head Surgeries/Procedures: Reports: None HEENT Surgical History: Reports: Tonsillectomy Social & Family History - Family History Family Medical History: No Pertinent Family History Hematologic: Reports: Anesthesia Reaction, Other (See Below) Other Hematologic Family History: malignant hyperthermia - Caffeine Use Caffeine Use: Reports: Energy Drinks Caffeine Use Comment: 1-2 daily - Recreational Drug Use Recreational Drug Use: No ED ROS GENERAL - Review of Systems Review Of Systems: See Below Free Text/Narrative/Comment: General: No fever. Skin: Per HPI Musculoskeletal: Per HPI Neurologic: No headache. ED EXAM, SKIN/RASH Exam: See Below Text/Narrative:: General Appearance: No acute distress, appears comfortable Skin: No rash HEENT: Normocephalic/atraumatic, sclera anicteric, mucous membranes moist Neck: Normal range of motion Back: Normal Musculoskeletal: 2+ right radial pulse puncture wound seen on the right hand of the middle finger at the PIP joint no bleeding or discharge there is significant warmth and redness tracking down the dorsal aspect of the hand and occupying the majority of the dorsal aspect of the hand patient is able to make a fist but has significant tightness over the dorsal aspect of the hand during this he is able to extend well. He has no discomfort on the palmar aspect of his hand on the flexor surfaces of his fingers he has no erythema or tenderness on the flexor surface of the fingers of the palmar aspect of the hand the hand is neurovascularly intact Neurologic: Awake, alert, no obvious deficits, moving all extremities Psychiatric: Appropriate, cooperative Course - Vital Signs Last Recorded V/S: Last Vital Signs Temp 96 F L 04/19/20 00:15 Pulse 112 H 04/19/20 00:15 Resp 18 04/19/20 00:15 BP 134/88 04/19/20 00:15 Pulse Ox 97 04/19/20 00:15 - Orders/Labs/Meds Meds: Medications Discontinued Medications Generic Name Dose Route Start Last Admin Trade Name Sue PRN Reason Stop Dose Admin Amoxicillin/Clavulanate Potassium 1 tab 04/19/20 00:19 04/19/20 00:24 Augmentin 875 Mg/125 Mg PO 04/19/20 00:20 1 tab ONETIME ONE Administration Departure - Departure Time of Disposition: 01:01 Disposition: Home, Self-Care 01 Condition: Good Clinical Impression: Cellulitis of right hand - Discharge Information *PRESCRIPTION DRUG MONITORING PROGRAM REVIEWED*: Not Applicable *COPY OF PRESCRIPTION DRUG MONITORING REPORT IN PATIENT SAMAN: Not Applicable Prescriptions: Amoxicillin/Potassium Clav [Augmentin 875-125 Tablet] 1 each PO BID 7 Days #14 tablet Instructions: Cellulitis, Adult Referrals: Jhonatan Winchester MD [Primary Care Provider] - 3 Days Forms: ED Department Discharge Additional Instructions: Please be sure to finish the entire antibiotic course. If you develop a fever worsening pain or redness or if you develop any worsening pain redness or swelling on your palm or that side of your fingers please see your doctor right away or return to the ER for another evaluation. The following information is given to patients seen in the emergency department who are being discharged to home. This information is to outline your options for follow-up care. We provide all patients seen in our emergency department with a follow-up referral. The need for follow-up, as well as the timing and circumstances, are variable depending upon the specifics of your emergency department visit. If you don't have a primary care physician on staff, we will provide you with a referral. We always advise you to contact your personal physician following an emergency department visit to inform them of the circumstance of the visit and for follow-up with them and/or the need for any referrals to a consulting specialist. The emergency department will also refer you to a specialist when appropriate. This referral assures that you have the opportunity for follow-up care with a specialist. All of these measure are taken in an effort to provide you with optimal care, which includes your follow-up. Under all circumstances we always encourage you to contact your private physician who remains a resource for coordinating your care. When calling for follow-up care, please make the office aware that this follow-up is from your recent emergency room visit. If for any reason you are refused follow-up, please contact the [facility] Emergency Department at and asked to speak to the emergency department charge nurse. Sepsis Event Note (ED) - Evaluation Sepsis Screening Result: No Definite Risk - Focused Exam Vital Signs: Vital Signs Temp Pulse Resp BP Pulse Ox 04/19/20 00:15 96 F L 112 H 18 134/88 97 - Assessment/Plan Assessment:: 24-year-old male presenting with a right hand cellulitis secondary to a cat bite. Patient has no signs of flexor tenosynovitis at this time x-ray to exclude foreign body. If x-ray unremarkable can be discharged with Augmentin. No sign of abscess. 0101: X-ray negative for abnormality. Patient discharged with follow-up return precaution discussed and understood.
--- NOTE | 2020-04-19 00:43 | CR ---
INDICATION: Cat bite to middle finger TECHNIQUE: Hand radiograph 2 views right COMPARISON: None FINDINGS: Bone: No acute fractures or aggressive bone lesions are identified. Joint: The carpal and metacarpal-phalangeal joints are unremarkable in appearance. The interphalangeal joints are normal in appearance. Soft tissue: Unremarkable. No radiopaque foreign bodies are seen. IMPRESSION: 1. No acute osseous injuries or abnormalities are noted. Dictated by: Benedict Leon MD @ 04/19/2020 00:41:36 (Electronically Signed)
[2020-04-19 01:18] VITALS: BP 134/79; PULSE 99
== END 2020-04-19 01:17 | disposition home or self-care (01) ==
LOC: MW.ED 00:09
DX: L03.113 Cellulitis of right upper limb (principal); S61.431A Puncture wound without foreign body of right hand, initial encounter; W55.01XA Bitten by cat, initial encounter
CPT/HCPCS: 73120; 99283; A9270

== ENCOUNTER 2021-01-12 23:47 | Emergency (ER) | payer OTHER ==
--- NOTE | 2021-01-13 00:26 | PCM.EKG ---
#1 Interpretation EKG Date: 01/12/21 Time: 23:57 Rhythm: NSR Rate (Beats/Min): 109 [place]: Normal P-Wave: Present QRS: Normal ST-T: Normal QT: Normal Comparison: NA - No Prior EKG EKG Interpretation Comments: Sinus Tachycardia
--- NOTE | 2021-01-13 00:29 | CR ---
INDICATION: [id number] TECHNIQUE: Portable upright AP view of the chest COMPARISON: PA and lateral chest radiographs 04/27/2019 FINDINGS: The lungs are clear. There is no sizable pleural effusion or pneumothorax. The cardiomediastinal silhouette is normal. The visualized osseous structures are unremarkable. IMPRESSION: No acute intrathoracic process. Dictated by Cindi Cadet MD @ 01/13/2021 12:27:13 AM (Electronically Signed)
[2021-01-13] MEDS ORDERED: Ketorolac 15 MG/ML SDV IM ONE (00:34)
[2021-01-13] MEDS ORDERED: Ketorolac 15 MG/ML SDV IVPUSH ONE (00:41)
[2021-01-13] MEDS ORDERED: Lactated Ringers 1,000 ML IV SCH (00:45)
[2021-01-13 01:22] LABS: CORONAVIRUS COVID-19 NAA NEGATIVE (NEGATIVE); INFLUENZA A NAA NEGATIVE (NEGATIVE); INFLUENZA B NAA NEGATIVE (NEGATIVE); RESPIRATORY SYNCYTIAL VIR NAA NEGATIVE (NEGATIVE)
[2021-01-13 01:28] VITALS: BP 121/68; PULSE 112
--- NOTE | 2021-01-13 01:32 | EDM.PDOC ---
ED HPI GENERAL MEDICAL PROBLEM - General Chief Complaint: General Stated Complaint: COVID SYMPTOMS, CHEST PAIN, SOB Time Seen by Provider: 01/13/21 00:00 - History of Present Illness INITIAL COMMENTS - FREE TEXT/NARRATIVE: CHIEF COMPLAINT(S): "I think I have Covid." HISTORY OF PRESENT ILLNESS: This is a 25-year-old man with a past medical history of ADHD and anxiety who comes to the emergency department with a chief complaint of "I think I have Covid." The patient states that he thinks he has Covid because for the last 3 days he has been experiencing body aches throughout his entire body and today he lost his sense of smell. He denies any cough but states that he did feel short of breath yesterday. He states that he has an associated headache which is bifrontal not associated with any blurry vision, loss of vision, double vision. He denies any numbness, tingling, or weakness. He rates his pain as 5 out of 10. He denies any radiation of this pain. He denies any neck pain or stiffness. He states that he has had a fever which is between 99 and 103.8. He has been using Tylenol and Motrin. He denies any exacerbating or relieving factors. He states that he was exposed approximately 1 week ago for people with Covid. REVIEW OF SYSTEMS: Constitutional: Positive for fever. Eyes: Denies eye pain Ears, Nose, Mouth, & Throat: Denies earache Cardiovascular: Denies chest pain Respiratory: Positive shortness of breath. Denies cough Gastrointestinal: Denies Nausea, vomiting, diarrhea, hematochezia. Genitourinary: Denies hematuria Skin:Denies a rash MSK: Denies joint pain Neurological: Positive for headache. Denies blurred vision, numbness, tingling, weakness Psychiatric: Positive for ADHD and anxiety PAST MEDICAL HISTORY: As per history of present illness and as reviewed below otherwise noncontributory. SURGICAL HISTORY: As per history of present illness and as reviewed below otherwise noncontributory. SOCIAL HISTORY: As per history of present illness and as reviewed below otherwise noncontributory. FAMILY HISTORY: As per history of present illness and as reviewed below otherwise noncontributory. EXAMINATION OF ORGAN SYSTEMS/BODY AREAS: Constitutional: Blood pressure is 136/67, heart rate 109, respiratory rate 20 with an oxygen saturation 95% on room air. Temperature 37.6 General: Well-appearing man who is in no acute distress Psychiatric: Appropriate mood and affect. Eyes: No scleral icterus or conjunctival erythema ENMT: Moist mucous membranes. No pharyngeal erythema Cardiovascular: Regular, rate, and rhythm. No gallops, murmurs, or rubs. Bilateral upper extremity pulses symmetric and intact. No peripheral edema. No JVD. Respiratory: Lungs clear to auscultation bilaterally. No wheezes, rales, or rhonchi. Gastrointestinal: Soft, non-tender, non-distended. Normoactive bowel sounds Genitourinary: No suprapubic tenderness Musculoskeletal: Normal range of motion. Skin: No lesions or abrasions. Neurological: Alert, GCS 15 MEDICAL DECISION MAKING AND COURSE IN THE ED WITH INTERPRETATION/REVIEW OF DIAGNOSTIC STUDIES: This is a 25-year-old man without any significant past medical history who comes to the emergency department with viral-like symptoms with loss of smell. At this time given the loss of smell the patient is likely COVID-19 positive given exposures. We did obtain a screening EKG which is unremarkable. Will obtain Covid and influenza and RSV swabs. Will obtain a chest x-ray. We will provide the patient with 1 L of lactated Ringer's bolus given the tachycardia. Also provide the patient with Toradol for pain relief. DDx: COVID-19 pneumonia, influenza, viral upper respiratory infection Laboratory: Covid, influenza, RSV negative. The radiological images were viewed by myself along with reading the report from the radiologist. Chest x-ray does not reveal any acute cardiopulmonary process. After labs and imaging I did reevaluate the patient. The patient continued to remain stable. I did discuss symptomatic treatment at home. Given his symptoms I do believe the patient is still likely COVID-19 positive. I did discuss the need to quarantine for the next 7 days for a total of 14 days. If he has any worsening of symptoms I discussed return to the emergency department. He was amenable to discharge and had no further questions. DISPOSITION: The patient was discharged home in stable condition. The patient will follow up with primary care physician after his quarantine CONDITION: Fair PROCEDURES: None FINAL IMPRESSION(S)/DIAGNOSES: 1. Acute viral syndrome, possibly COVID-19 Luis Enrique Vides M.D. Chest Pain Score (Numeric/FACES): 5 - Related Data Allergies Allergy/AdvReac Type Severity Reaction Status Date / Time No Known Allergies Allergy Verified 01/13/21 00:04 Home Meds: Home Meds . 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 Immunologic History: Reports: None Oncologic (Cancer) History: Reports: None Dermatologic History: Reports: None - Infectious Disease History Infectious Disease History: Reports: None - Past Surgical History Head Surgeries/Procedures: Reports: None HEENT Surgical History: Reports: Tonsillectomy Social & Family History - Family History Family Medical History: No Pertinent Family History Hematologic: Reports: Anesthesia Reaction, Other (See Below) Other Hematologic Family History: malignant hyperthermia - Tobacco Use Second Hand Smoke Exposure: No - Caffeine Use Caffeine Use: Reports: None Caffeine Use Comment: 1-2 daily - Recreational Drug Use Recreational Drug Use: No ED ROS GENERAL - Review of Systems Review Of Systems: See Below ED EXAM, GENERAL - Physical Exam Exam: See Below Course - Vital Signs Last Recorded V/S: Last Vital Signs Temp 37.6 C 01/13/21 00:01 Pulse 112 H 01/13/21 01:27 Resp 20 01/13/21 00:01 BP 121/68 01/13/21 01:27 Pulse Ox 96 01/13/21 01:27 - Orders/Labs/Meds Labs: Laboratory Tests 01/12/21 Range/Units 23:59 Influenza Type A RNA NEGATIVE (NEGATIVE) RSV RNA (INAAT) NEGATIVE (NEGATIVE) Influenza Type B RNA NEGATIVE (NEGATIVE) SARS-CoV-2 RNA (JESSICA) NEGATIVE (NEGATIVE) Meds: Medications Discontinued Medications Generic Name Dose Route Start Last Admin Trade Name Freq PRN Reason Stop Dose Admin Lactated Ringer's 1,000 mls @ 999 mls/hr 01/13/21 00:45 01/13/21 00:43 Ringers, Lactated IV 999 mls/hr ASDIRECTED CARRILLO Administration Ketorolac Tromethamine 15 mg 01/13/21 00:34 Ketorolac 15 Mg/Ml Sdv IM 01/13/21 00:35 ONETIME ONE Ketorolac Tromethamine 15 mg 01/13/21 00:41 01/13/21 00:43 Ketorolac 15 Mg/Ml Sdv IVPUSH 01/13/21 00:42 15 mg ONETIME ONE Administration Departure - Departure Time of Disposition: 01:31 Disposition: Home, Self-Care 01 Condition: Fair Clinical Impression: Viral URI - Discharge Information *PRESCRIPTION DRUG MONITORING PROGRAM REVIEWED*: No *COPY OF PRESCRIPTION DRUG MONITORING REPORT IN PATIENT SAMAN: No Instructions: Upper Respiratory Infection, Adult, [id number] Referrals: PCP,None [Primary Care Provider] - Forms: ED Department Discharge Additional Instructions: You were evaluated today on an emergent basis. At this time your chest x-ray was normal your rhythm strip of your heart was normal and your Covid and influen za and RSV all were negative. However given your symptoms they are likely consistent with COVID-19. I do believe your test was likely a false negative. Given your exposure 1 week ago I recommend that you quarantine for the next 7 days. I recommend that you purchase an [id number] oxygen monitor and return to the emergency department if your oxygen saturation is less than 91%. If you have any worsening shortness of breath, cough and you are not feeling well would like you to return to the emergency department. Otherwise follow-up with primary care after your quarantine is over. [facility] - Primary Care [address] [place] [address] [id number] [address] [address] The patient is informed of any results of their evaluation and diagnostic workup and all questions are answered. They are given discharge instructions and return precautions. The patient is stable for discharge. The patient states they understand and agree with the plan and that they will return if their symptoms get worse or if they have any new concerns. The following information is given to patients seen in the emergency department who are being discharged to home. This information is to outline your options for follow-up care. We provide all patients seen in our emergency department with a follow-up referral. The need for follow-up, as well as the timing and circumstances, are variable depending upon the specifics of your emergency department visit. If you don't have a primary care physician on staff, we will provide you with a referral. We always advise you to contact your personal physician following an emergency department visit to inform them of the circumstance of the visit and for follow-up with them and/or the need for any referrals to a consulting specialist. The emergency department will also refer you to a specialist when appropriate. This referral assures that you have the opportunity for follow-up care with a specialist. All of these measure are taken in an effort to provide you with optimal care, which includes your follow-up. Under all circumstances we always encourage you to contact your private physician who remains a resource for coordinating your care. When calling for follow-up care, please make the office aware that this follow-up is from your recent emergency room visit. If for any reason you are refused follow-up, please contact the [facility] Emergency Department at and asked to speak to the emergency department charge nurse. Sepsis Event Note (ED) - Evaluation Sepsis Screening Result: No Definite Risk - Focused Exam Vital Signs: Vital Signs Temp Pulse Resp BP Pulse Ox 01/13/21 01:27 112 H 121/68 96 01/13/21 00:01 37.6 C 109 H 20 136/67 95
== END 2021-01-13 01:40 | disposition home or self-care (01) ==
LOC: MW.ED 23:47
DX: J06.9 Acute upper respiratory infection, unspecified (principal); Z20.822 Contact with and (suspected) exposure to COVID-19
CPT/HCPCS: 0241U; 71045; 93005; 96374; 99285; J1885; J7120

== ENCOUNTER 2021-09-06 18:17 | Emergency (ER) | payer OTHER ==
[2021-09-06] MEDS ORDERED: Sodium Chloride 0.9% 1,000 ML IV ONE ×2 (18:53→18:59)
[2021-09-06] MEDS ORDERED: Ondansetron 4 MG/2 ML SDV IVPUSH ONE (18:59)
[2021-09-06 19:09] LABS: CARBON DIOXIDE,CO2 27.4 mmol/L (21.0-32.0); POTASSIUM,K 3.8 mmol/L (3.5-5.1)
[2021-09-06 20:32] VITALS: BP 128/76; PULSE 92
== END 2021-09-06 20:32 | disposition home or self-care (01) ==
LOC: MW.ED 18:17
DX: T67.2XXA Heat cramp, initial encounter (principal); R11.2 Nausea with vomiting, unspecified; E86.0 Dehydration
CPT/HCPCS: 36415; 71045; 80053; 81003; 82550; 85025; 93005; 96361; 96374; 99284; J2405; J7030

== ENCOUNTER 2021-09-12 18:09 | Emergency (ER) | payer OTHER ==
[2021-09-12] MEDS ORDERED: Tetracaine HCl/PF 0.5% 4 ML Bottle EYEBOTH STA (22:59)
[2021-09-12] MEDS ORDERED: Erythromycin Base 0.5% Ophth Oint 1 GM Tube EYELF STA (23:43)
[2021-09-12] MEDS ORDERED: Diphtheria,Pertussis(Acell),Tetanus Vaccine 0.5 ML Syringe IM ONE (23:43)
[2021-09-12] MEDS ORDERED: Ibuprofen 600 MG Tab PO ONE (23:44)
[2021-09-12] MEDS ORDERED: traMADol 50 MG Tab PO ONE (23:44)
[2021-09-13 08:01] VITALS: BP 129/76; PULSE 94
== END 2021-09-13 00:12 | disposition home or self-care (01) ==
LOC: MW.ED 18:09
DX: S05.02XA Injury of conjunctiva and corneal abrasion without foreign body, left eye, initial encounter (principal); Z79.899 Other long term (current) drug therapy; Z72.0 Tobacco use; Z23 Encounter for immunization
CPT/HCPCS: 90471; 90715; 99283; A9270